=== PATIENT | female | born 1990 ===

== ENCOUNTER → 2018-07-29 22:31 | Observation (INO) ==
[2018-07-29 20:23] LABS: Bilirubin,Urine Negative (Negative); Blood,Urine Negative (Negative); Clarity,Urine Cloudy (Clear); Color,Urine Yellow (Yellow); Glucose,Urine (UA) Normal (Normal); Ketones,Urine Trace mg/dL (Negative); Leukocyte Esterase,Urine Small (Negative); Nitrite,Urine Negative (Negative); Protein,Urine 30 mg/dL (Neg-Trace); Specific Gravity,Urine 1.024 (1.010-1.025); Urobilinogen,Urine Normal (Normal)
[2018-07-29 20:31] LABS: Amphetamine Screen,Urine Negative ng/mL (Cutoff=1000); Barbiturate Screen,Urine Negative ng/mL (Cutoff=200); Benzodiazepines Screen,Urine Negative ng/mL (Cutoff=200); Cannabinoid Screen,Urine Negative ng/mL (Cutoff = 50); Cocaine Screen,Urine Negative ng/mL (Cutoff= 300); Opiate Screen,Urine Negative ng/mL (Cutoff=300); Phencyclidine Screen,Urine Negative ng/mL (Cutoff=25)
[2018-07-29 20:33] LABS: Squamous Epithelial Cell,Urine Many per lpf (None-Few); WBC,Urine 0-3 per hpf (0-3)
[2018-07-29 20:34] LABS: Bacteria,Urine Few per hpf (None-Few); Mucus,Urine Few (Few)
[2018-07-29 21:29] LABS: Basophils # 0.1 K/mcL (0.0-0.2); Basophils % 0.4 %; Eosinophils # 0.4 K/mcL (0.0-0.6); Eosinophils % 2.3 %; Hematocrit 36.5 % (35.3-44.9); Immature Granulocytes % 0.8 % (0-4); Lymphocytes # 3.2 K/mcL (0.6-4.6); Lymphocytes % 21.1 %; Mean Corpuscular HGB Conc 32.9 g/dL (31.6-35.5); Mean Corpuscular Hemoglobin 28.8 pg (28.0-33.3); Mean Corpuscular Volume 87.7 fL (83.0-100.0); Mean Platelet Volume 11.4 fL (9.4-12.4); Monocytes # 0.9 K/mcL (0.0-1.3); Monocytes % 5.9 %; Neutrophils # 10.5 K/mcL (1.6-8.9); Platelet Count 235 K/mcL (140-400); Red Blood Count 4.16 M/mcL (3.82-4.97); Red Cell Distribution Width 13.7 % (11.5-14.5); Segmented Neutrophils % 69.5 %
[2018-07-29 21:51] LABS: Alanine Aminotransferase 13 Units/L (7-52); Aspartate Amino Transferase 13 Units/L (13-39); BUN/Creatinine Ratio 20 (6-26); Blood Urea Nitrogen 10 mg/dL (6-20); Lactate Dehydrogenase 153 Units/L (140-271); Uric Acid 5.1 mg/dL (2.3-7.6); eGFR For Non-African Americans > 60 (> 60)
--- NOTE | 2018-07-29 22:00 | OB/GYN Progress Note ---
Date of Encounter: 07/29/18 Time of Encounter: 21:56 - Assessment and Plan (1) 34 weeks gestation of Current Visit: Yes Status: Acute Admitted to observation for labor evaluation Irregular contractions noted, SVE closed/thick/high Discharge home and to follow up with OB provider as scheduled for routine care. (2) NST (non-stress test) reactive Current Visit: Yes Status: Acute FHR 145 bpm, moderate variability, +15x15 accels, no decels. (3) Abdominal cramping affecting Current Visit: Yes Status: Acute Irregular contractions noted on monitor. SVE closed/thick/high SSE completed to evaluate for pelvic pressure. Vaginosis panel collected. Will call patient if results return positive. To follow up with OB provider as scheduled for routine care. Subjective - Subjective Principal diagnosis: Abdominal pain 34w6d, pelvic pressure Interval history: Mily is a at 34w6d who presents with complaint of intermittent abdominal pain and vaginal pressure since about 1900 today. She reports positive movement, denies vaginal leakage and bleeding. She reports the pain begins at the fundus and radiates to the pelvic area. Irregular contractions noted on monitor. Patient receives care at [facility] in [place]. She had several elevated blood pressures on arrival so [facility] labs were drawn. She is currently being treated with Amoxicillin for a URI. Antepartum ROS: movement normal, contractions, no loss of fluid, no vaginal bleeding Objective - Exam FHR: category 1 FHR comments: FHR 145 bpm, moderate variability, +15x15 accels, no decels. Irregular contractions. Auscultation: bilateral: normal Abdomen: Present: normal appearance, soft, gravid Uterus: Present: normal Cervical dilation: Closed Cervix effacement: Thick station: High - Labs Labs: Abnormal lab results WBC 15.1 K/mcL (4.3-11.1) H 07/29/18 21:20 Neutrophils # 10.5 K/mcL (1.6-8.9) H 07/29/18 21:20 Creatinine 0.51 mg/dL (0.60-1.20) L 07/29/18 21:20 Ur Specimen Adequacy See below A 07/29/18 20:15 Urine Clarity Cloudy (Clear) A 07/29/18 20:15 Urine Protein 30 mg/dL (Neg-Trace) H 07/29/18 20:15 Urine Ketones Trace mg/dL (Negative) H 07/29/18 20:15 Ur Leukocyte Esterase Small (Negative) H 07/29/18 20:15 Ur Squamous Epith Cells Many per lpf (None-Few) H 07/29/18 20:15 Ur Culture Indicated? NO. (NO) A 07/29/18 20:15
[2018-07-29 22:07] LABS: Protein/Creatinine Ratio,Urine 0.18 mg/mg (0.00-0.20)
[2018-07-29 22:58] LABS: Candida DNA Not Detected (Not Detect); Gardnerella DNA DETECTED (Not Detect); Trichomonas DNA Not Detected (Not Detect)
--- NOTE | 2018-07-29 23:13 | Event Note ---
Date of Encounter: 07/29/18 Time of Encounter: 23:12 Vaginosis panel returned positive for BV. Patient called and notified of lab result. Unable to send RX to [facility] so patient states she will call her OB in the morning and have him call her in a prescription.
== END | disposition home or self-care (01) ==
LOC: 1NENULAB
PROVIDERS: ADMIT Registered Nurse; ATTEND Registered Nurse